=== PATIENT | male | born 1990 | race African-American/Black ===

== ENCOUNTER 2019-05-01 23:26 | Inpatient (IN) | payer OTHER ==
[2019-05-02] MEDS ORDERED: DEXAMETHASONE 10 MG/ML VIAL PO STA (00:08)
[2019-05-02] MEDS ORDERED: LIDOCAINE VISCOUS 2% 15 ML UDC MM STA (00:09)
[2019-05-02] MEDS ORDERED: CHERRY SYRUP 10 ML UDC PO ONE (00:09)
[2019-05-02 00:25] LABS: RAPID STREP SCREEN Negative (Negative)
--- NOTE | 2019-05-02 00:42 | XRAY Report ---
Reason: sore throat Procedure Date: 05/02/2019 Accession Number: [id number] / [id number] Procedure: XR - Neck Soft Tissue CPT Code: Final Report FULL RESULT: EXAM: SOFT TISSUE NECK RADIOGRAPHY EXAM DATE: 05/02/2019 12:36 AM. CLINICAL HISTORY: Sore throat. COMPARISONS: None. TECHNIQUE: 2 views. FINDINGS: Soft Tissues: The prevertebral soft tissues are edematous. The adenoid and palatine tonsils are enlarged. The epiglottis and aryepiglottic folds are unremarkable. No radiopaque foreign body. Regional Skeleton: Unremarkable for age. Other: The visualized lung apices are clear. IMPRESSION: Prevertebral soft tissue swelling with adenoid and palatine tonsillar enlargement. RADIA
[2019-05-02] MEDS ORDERED: IPRATROPIUM/ALBUTEROL 3 ML NEB INH STA (00:43)
[2019-05-02] MEDS ORDERED: KETOROLAC 30 MG/ML VIAL IVP STA (01:18)
[2019-05-02 01:30] LABS: BASOPHILS % (AUTO) 0.3 %; EOSINOPHILS # (AUTO) 0.1 10^3/uL (0.0-0.7); HGB - HEMOGLOBIN 14.9 g/dL (14.0-18.0); LYMPHOCYTES % (AUTO) 8.5 %; MEAN CORPUSCULAR HEMOGLOBIN 26.7 pg (27.0-31.0); MEAN CORPUSCULAR HGB CONC 32.3 g/dL (32.0-36.0); MEAN CORPUSCULAR VOLUME 82.6 fL (80.0-94.0); MEAN PLATELET VOLUME 9.7 fL (7.4-11.4); MONOCYTES # (AUTO) 1.1 10^3/uL (0.0-1.0); MONOCYTES % (AUTO) 8.7 %; NEUTROPHILS # (AUTO) 9.9 10^3/uL (1.5-6.6); NEUTROPHILS % (AUTO) 80.8 %; PLT - PLATELET COUNT 248 10^3/uL (130-450); RED BLOOD COUNT 5.58 10^6/uL (4.70-6.10); RED CELL DISTRIBUTION WIDTH 15.9 % (12.0-15.0); WHITE BLOOD COUNT 12.2 x10^3/uL (4.8-10.8)
[2019-05-02] MEDS ORDERED: IOVERSOL 320 100 ML VIAL IVP ONE ×2 (01:40→02:19)
[2019-05-02 01:41] LABS: ALBUMIN 4.1 g/dL (3.2-5.5); ALBUMIN/GLOBULIN RATIO 1.2 (1.0-2.2); BILIRUBIN,TOTAL 0.8 mg/dL (0.2-1.0); CALCIUM 9.1 mg/dL (8.5-10.3); CREATININE 1.2 mg/dL (0.6-1.2); TOTAL PROTEIN 7.4 g/dL (6.7-8.2)
--- NOTE | 2019-05-02 02:36 | CT Report ---
Reason: SORE THROAT, XRAY SHOW PREVERTEBRAL SWELLING. ?RPA Procedure Date: 05/02/2019 Accession Number: [id number] / [id number] Procedure: CT - SOFT TISSUE NECK W CPT Code: Final Report FULL RESULT: EXAM: CT SOFT TISSUE NECK WITH CONTRAST. EXAM DATE: 05/02/2019 02:17 AM. HISTORY: SORE THROAT, XRAY SHOW PREVERTEBRAL SWELLING. ? Retropharyngeal abscess. COMPARISONS: NECK SOFT TISSUE 05/02/2019 12:29 AM. TECHNIQUE: Routine soft tissue neck CT protocol with contrast. Reconstructions: Coronal and sagittal. IV contrast: OPTIRAY 320. In accordance with CT protocol optimization, one or more of the following dose reduction techniques were utilized for this exam: automated exposure control, adjustment of mA and/or KV based on patient size, or use of iterative reconstructive technique. FINDINGS: Visualized Intracranial Contents: Unremarkable. Orbits: Symmetric and unremarkable. Sinuses: Visualized paranasal sinuses and mastoid air cells are clear. Oral cavity: The visualized oral cavity is unremarkable. The floor of the mouth is symmetric. Pharynx: Boggy, edematous appearing right palatine tonsil without a drainable collection confidently identified. Edema extends upward to about the level of the soft palate, downward into the right hypopharynx, obscuring the right piriform sinus. Prominent adenoids. Mildly prominent lingual tonsils. Edema extends into the retropharyngeal space, this represents the finding seen on radiographs. The base of the tongue is symmetric and unremarkable. The airway is patent. Larynx: Larynx and supraglottic airway are patent without mass lesion. Vocal cords are symmetric. The visualized trachea is unremarkable. Parotid and Submandibular Glands: Symmetric and unremarkable. Lymph Nodes: Prominent right-sided level 2 lymph nodes, likely reactive nodes. Soft tissues: Soft tissues are unremarkable. No mass lesion or abnormal enhancement. Vascular Structures: Unremarkable. Thyroid Gland: Normal. Lung: The visualized lung apices are clear. Bones: No evidence of acute fracture or malalignment. There are mild degenerative changes. Other: None. IMPRESSION: 1. Boggy, edematous appearing right palatine tonsil without a drainable collection confidently identified. Findings consistent with active inflammation. Edema extends upward to about the level of the soft palate, downward into the right hypopharynx, obscuring the right piriform sinus. 2. Edema extends into the retropharyngeal space, this represents the finding seen on radiographs. 3. Prominent right-sided level 2 lymph nodes, likely reactive nodes. RADIA
[2019-05-02] MEDS ORDERED: ONDANSETRON 4 MG/2 ML VIAL IVP PRN (03:30)
[2019-05-02] MEDS ORDERED: SODIUM CHLORIDE FLUSH 0.9% 10 ML SYRINGE IVP PRN (03:30)
[2019-05-02] MEDS ORDERED: ONDANSETRON ODT 4 MG TABLET TL PRN (03:30)
[2019-05-02] MEDS ORDERED: oxyCODONE 5 MG TABLET PO PRN (03:30)
--- NOTE | 2019-05-02 03:32 | ED Physician Documentation ---
PD HPI DYSPNEA - Stated complaint Stated Complaint: SOA/HARD TO SWALLOW - Chief complaint Chief Complaint: Heent - History obtained from History obtained from: Patient - History of Present Illness Timing - onset: Yesterday, Other Timing - onset during: Rest Timing - details: Gradual onset, Still present Pain level max: 8 Pain level now: 8 Associated symptoms: Cough. No: Fever Similar symptoms before: Has not had sx before - Additional information Additional information: 28-year-old male, former smoker who quit smoking about 2 weeks ago, who presents to emergency department because of acute onset of right-sided sore throat that started tonight. He first started experiencing a sore throat a day ago. Tonight while he was sleeping, he reported of a coughing episode with wheezes and post tussive vomiting. He reported of odontophagia. Patient had no drooling. Patient denies any fever or chills. He denies recent oral trauma. He denies any neck pain or similar symptoms like this in the past. Review of Systems Constitutional: denies: Fever Nose: denies: Rhinorrhea / runny nose Throat: reports: Sore throat, Swollen tonsils Cardiac: denies: Chest pain / pressure, Palpitations Respiratory: reports: Dyspnea, Cough, Wheezing GI: denies: Abdominal Pain, Abdominal Swelling, Nausea, Vomiting Skin: denies: Rash Musculoskeletal: denies: Neck pain, Back pain, Extremity pain PD PAST MEDICAL HISTORY - Past Medical History Past Medical History: No Cardiovascular: None Respiratory: None Neuro: None Endocrine/Autoimmune: None GI: None HEENT: None Psych: None Musculoskeletal: None Derm: None - Past Surgical History Past Surgical History: No - Present Medications Home Medications: Ambulatory Orders Medication Instructions Recorded Confirmed No Known Home Medications 05/01/19 05/01/19 - Allergies Allergies/Adverse Reactions: Allergies Allergy/AdvReac Type Severity Reaction Status Date / Time No Known Drug Allergies Allergy Verified 05/01/19 23:32 - Social History Does the pt smoke?: No Smoking Status: Former smoker Does the pt drink ETOH?: Yes ETOH Use: Wine, Beer Does the pt have substance abuse?: No - Immunizations Immunizations are current?: Yes - POLST Patient has POLST: No PD ED PE NORMAL - Vitals Vital signs reviewed: Yes - General General: Alert and oriented X 3 - HEENT HEENT: Atraumatic, Other (mild right peritonsillar swelling. uvula is midline. 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, No motor deficit, No sensory deficit, Normal speech Eye Opening: Spontaneous Motor: Obeys Commands Verbal: Oriented GCS Score: 15 Results - Vitals Vitals: Vital Signs - 24 hr 05/01/19 05/02/19 05/02/19 23:30 00:43 00:50 Temperature 37.3 C Heart Rate 87 76 68 Respiratory 18 19 16 Rate Blood Pressure 148/77 H 137/76 H O2 Saturation 95 100 05/02/19 05/02/19 05/02/19 01:03 02:15 03:05 Temperature Heart Rate 80 64 65 Respiratory 18 16 15 Rate Blood Pressure 159/74 H 138/68 H 122/69 O2 Saturation 99 97 99 Oxygen O2 Source Room air - Labs Labs: Laboratory Tests 05/02/19 05/02/19 05/02/19 00:10 00:10 01:25 WBC 12.2 H RBC 5.58 Hgb 14.9 Hct 46.1 MCV 82.6 MCH 26.7 L MCHC 32.3 RDW 15.9 H Plt Count 248 MPV 9.7 Neut # (Auto) 9.9 H Lymph # (Auto) 1.0 L [place] # (Auto) 1.1 H Eos # (Auto) 0.1 Baso # (Auto) 0.0 Absolute Nucleated RBC 0.00 Nucleated RBC % 0.0 Sodium Potassium Chloride Carbon Dioxide Anion Gap BUN Creatinine Estimated GFR (MDRD) Glucose Calcium Total Bilirubin AST ALT Alkaline Phosphatase Total Protein Albumin Globulin Albumin/Globulin Ratio Influenza A (Rapid) Negative Influenza B (Rapid) Negative Group A Strep Rapid Negative 05/02/19 01:25 WBC RBC Hgb Hct MCV MCH MCHC RDW Plt Count MPV Neut # (Auto) Lymph # (Auto) [place] # (Auto) Eos # (Auto) Baso # (Auto) Absolute Nucleated RBC Nucleated RBC % Sodium 139 Potassium 3.8 Chloride 104 Carbon Dioxide 29 Anion Gap 6.0 BUN 17 Creatinine 1.2 Estimated GFR (MDRD) 86 L Glucose 119 H Calcium 9.1 Total Bilirubin 0.8 AST 29 ALT 75 H Alkaline Phosphatase 48 Total Protein 7.4 Albumin 4.1 Globulin 3.3 Albumin/Globulin Ratio 1.2 Influenza A (Rapid) Influenza B (Rapid) Group A Strep Rapid PD MEDICAL DECISION MAKING - ED course Complexity details: re-evaluated patient, d/w patient ED course: 28-year-old male, who is otherwise healthy, former smoker, who presented to the emergency department for evaluation because of sore throat that started tonight. Patient also woke up with a coughing episode with shortness of breath. Patient had mild Expiratory wheezes and was given a DuoNeb treatment with resolution of his symptoms. Oral for exam did not demonstrate any drooling or trismus. Patient did not have stridor. There was mild swelling to the right tonsillar region. Patient has full range of motion of his neck. Soft tissue x-rays show edema to the prevertebral space. Therefore, IV was started, labs were obtained and CT scan of the soft tissue neck was obtained. White blood cell count was mildly elevated. CT scan of the soft tissue neck with IV contrast showed edema to the right palatine tonsil without abscess identified. There was edema noted in the hypopharynx as well as edema to the retropharyngeal space. There was no CT evidence of retropharyngeal abscess at this time. I discussed the case with Dr. Nate Rosas, ENT specialist. He recommended IV antibiotic, clindamycin, for 48 hours. He also recommended IV steroids as well. If symptoms improve, patient can be follow-up with him as an outpatient with oral antibiotics. Patient's oropharynx remain patent on recheck. He had no stridor, trismus or drooling to suggest any impending airway obstruction. Patient was given oral Decadron earlier when he first arrived. He was given viscous lidocaine with persistent pain. He remained well appearing without distress. Case was discussed with Dr. Ch, Hospitalist. She has accepted the patient for admission. Departure - Departure Disposition: 66 [facility] DC/Xfer Clinical Impression: Cellulitis of tonsil, Oropharynx infection Condition: Stable
--- NOTE | 2019-05-02 03:49 | HISTORY & PHYSICAL EXAMINATION ---
Chief Complaint - Chief Complaint Chief Complaint: sore throat and wheezing, abrupt History of Present Illness - Admitted From Admitted From:: Home/ER - History Obtained From Records Reviewed: [facility] History obtained from: patient and Dr. Zazueta Exam Limitations: none - History of Present Illness HPI Comment/Other: 28-year-old black male who has no major medical illnesses. Regards himself is a healthy individual and this will be the first time he is encountered the medical system. He ill with a slight viral illness but nothing that was "bad". Tonight, however, he was woken from his sleep with a severe sore throat on the right side. It was causing him to have wheezing. He came to the emergency room and was evaluated by Dr. Zazueta. Temperature is 37.3, pulse is 87, blood pressure 148/77. Respirations 18 and is 95% on room air. On examination wheezing was treated with albuterol with good result. He had pain in the soft tissues of his right neck and as such plain film and CT of the neck were done. He has r etropharyngeal edema extending beyond the peritonsillar fold down into his neck. White cell count is 12.2. He is not drooling. Dr. Zazueta consulted ENT at [facility]. I will and reviewed the CT report. There is risk of retropharyngeal abscess developing. As such ENT recommends 8 doses of IV clindamycin. If the patient does not progress he can go home with oral antibiotics. 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 Mom is 44 years old and completely healthy without high blood pressure, cancer, diabetes, heart attack. No siblings. First child is on his way with his girlfriend and will be born soon Living arrangement: At home Living Situation: Alone Social History Notes: Mr. murcia is active duty [employer]. 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 He is originally from [place]. 7 years in the [employer]. His first duty station was [employer] and now here. He finds it a little quite a little boring. He smokes half a pack per day and stop smoking 2 weeks ago. Has been smoking since age 18. He drinks maybe 2 alcoholic drinks a week. Has no history of alcohol abuse, recreational substance abuse. He is not . His girlfriend is due with their first child in the next few weeks. - Substance History Use: Uses substance without health or social issues: Tobacco Abuse: Recurrent use of substance despite neg consequences: NONE Dependence: Experiences withdrawal or developed tolerances: NONE - POLST Patient has POLST: No POLST Status: Full Code Meds/Allgy - Home Medications Home Medications: Ambulatory Orders Medication Instructions Recorded Confirmed No Known Home Medications 05/01/19 05/01/19 - Allergies Allergies/Adverse Reactions: Allergies Allergy/AdvReac Type Severity Reaction Status Date / Time No Known Drug Allergies Allergy Verified 05/01/19 23:32 Review of Systems - All Other Systems All Other Systems: reports: Other (12 point review of systems done. All negative other than occasional right knee pain from hyperextended knee and the current positive ENT review of systems.) Prior Level of Functionality: Completely independent young male who is still active duty [employer], and has no mobility issues, cardiac, pulmonary, or central nervous system issues. Exam - Vital Signs Reviewed Vital Signs: Yes Vital Signs: Vital Signs x48h Temp Pulse Resp BP Pulse Ox 05/02/19 03:05 65 15 122/69 99 05/02/19 02:15 64 16 138/68 H 97 05/02/19 01:03 80 18 159/74 H 99 05/02/19 00:50 68 16 05/02/19 00:43 76 19 137/76 H 100 05/01/19 23:30 37.3 C 87 18 148/77 H 95 - Physical Exam General Appearance: positive: Alert, Mild distress (Mainly from right neck pain. He says his wheezing has resolved with the albuterol treatment.) Eyes Bilateral: positive: PERRL, EOMI ENT: positive: Other (Right tonsillar fold and posterior tonsillar area edematous extending to behind the tongue where I cannot see.) Neck: positive: Lymphadenopathy (R), Lymphadenopathy (L), Swelling/bruising (Mild asymmetry of the musculature along the right anterior cervical neck extending up below the jawline in that it is self than the left. Uncomfortable with palpation.). negative: Carotid bruit Respiratory: positive: Chest non-tender. negative: Wheezes, Rales, Rhonchi Cardiovascular: positive: Regular rate & rhythm. negative: Systolic murmur, Gallop/S4, Friction rub Peripheral Pulses: positive: 1+ Abdomen: positive: Non-tender, No organomegaly, Nml bowel sounds, No distention Skin: positive: Warm, Dry. negative: Diaphoresis Extremities: positive: Non-tender, Full ROM, No pedal edema Neurologic/Psychiatric: positive: Oriented x3, CN's nml (2-12), Motor nml, Sensation nml Conclusion/Plan - Problem List (1) Oropharynx infection Conclusion/Plan: This very pleasant male has new onset of a high risk infection where outpatient antibiotics is not appropriate. He has suspected streptococcal soft tissue infection. CT scan does not show a retropharyngeal abscess but he does have edema and inflammation in the retropharyngeal space that needs to be monitored closely. Plan: Inpatient admission for 8 doses of IV clindamycin Daily CBC Monitor airway and if there are signs of stridor or wheezing, repeat CT of neck (2) Pain and tenderness Conclusion/Plan: I have explained to the patient that he needs to let the nurses know if he has any change in his airway status. Pain will be controlled with Tylenol, oxycodone, or morphine depending on severity of illness. - Lab Results Lab results reviewed: Yes Shaheed Bones: 05/02/19 01:25 05/02/19 01:25 - Diagnostic Imaging Results Diagnostic Imaging Results: positive: Final report reviewed Diagnostic Imaging Results Comments: Soft tissue neck x-ray shows prevertebral soft tissue swelling with adenoid and palatine tonsillar enlargement. Soft tissue neck CT shows boggy, edematous appearing right palatine tonsil without drainable collection. Findings consistent with active inflammation. Edema extends upward to about the level of the soft palate, downward into the right hypopharynx and obscuring the right piriform sinus. Edema extends into the retropharyngeal space representing findings seen on plain film. Core Measures - Anticipated LOS I expect patient to be DC'd or transferred within 96 hours.: Yes - DVT/VTE - Prophylaxis VTE/DVT Device ordered at admit?: Yes
[2019-05-02] MEDS ORDERED: CLINDAMYCIN 900 MG/50 ML 50 ML IV SCH (04:00)
[2019-05-02] MEDS ORDERED: SODIUM CHLORIDE 0.9% 1,000 ML IV SCH (04:00)
[2019-05-02] MEDS: CLINDAMYCIN 900 MG/50 ML 50 ML IV SCH ×3 (09:54→21:36)
--- NOTE | 2019-05-02 10:24 | PROVIDER PROGRESS NOTE ---
Subjective - Prog Note Date Prog Note Date: 05/02/19 Prog Note Time: 10:17 - Subjective Pt reports feeling: Improved Subjective: Jennifer complains of a 5 out of 10 pain deep in his right throat that becomes worse with swallowing. He notes that bread seemed to be a problem when swallowing, otherwise did ok with breakfast. He agrees to the full treatment of IV antibiotics until ThursdayMay 03 ~ 1900PM, then transition to oral Clindamycin. Current Medications - Current Medications Current Medications: Active Medications: Tylenol 650mg PO Q4H, PRN Clindamycin Phosphate 50 mls @ 50 mls/hr IV ONCE ABIDA Clindamycin Phosphate (Cleocin 900 Mg/50 Ml) 50 mls @ 50 mls/hr IV Q6H ABIDA Morphine Sulfate (Morphine (Carpuject) 2 mg IVP Q2HR PRN Ondansetron HCl (Zofran Inj) 4 mg IVP Q6HR PRN Ondansetron HCl (Zofran Odt) 4 mg TL Q6HR PRN Oxycodone HCl (Roxicodone) 5 mg PO Q4HR PRN No Known Home Medications 05/01/19 Objective - Vital Signs/Intake & Output Reviewed Vital Signs: Yes Vital Signs: Vital Signs x48h Temp Pulse Pulse Resp BP BP BP 05/02/19 08:00 36.8 C 90 16 141/71 H 05/02/19 06:17 36.9 C 66 20 05/02/19 04:16 36.9 C 66 20 145/60 H 05/02/19 04:10 37.2 C 66 16 129/67 05/02/19 03:05 65 15 122/69 Pulse Ox 05/02/19 08:00 98 05/02/19 06:17 97 05/02/19 04:16 97 05/02/19 04:10 99 05/02/19 03:05 99 Intake & Output: Intake & Output 04/29/19 04/30/19 05/01/19 05/02/19 23:59 23:59 23:59 23:59 Intake Total 688.333 Balance 688.333 - Objective General Appearance: positive: No acute distress, Alert Eyes Bilateral: positive: Normal inspection, PERRL, No lid inflammation ENT: positive: No signs of dehydration, Pharyngeal erythema Neck: positive: Thyroid nml, No JVD, Trachea midline, Lymphadenopathy (R) (greater than left, non-tender) Respiratory: positive: Chest non-tender, No respiratory distress, Breath sounds nml Cardiovascular: positive: Regular rate & rhythm, No murmur, No gallop Peripheral Pulses: 2+ Radial (R), 2+ Radial (L) Abdomen: positive: Non-tender, No organomegaly, Nml bowel sounds Back: positive: Nml inspection Skin: positive: Color nml, No rash, Warm, Dry Extremities: positive: Non-tender, Full ROM, Nml appearance, No pedal edema Neurologic/Psychiatric: positive: Oriented x3, CN's nml (2-12), Motor nml, Sensation nml, Mood/affect nml Reflexes: Bicep (R): 4+, Bicep (L): 4+ - Lab Results Fish Bones: 05/02/19 01:25 05/02/19 01:25 Other Labs: Lab Results x24hrs 05/02/19 05/02/19 05/02/19 Range/Units 04:00 01:25 01:25 WBC 12.2 H (4.8-10.8) x10^3/uL RBC 5.58 (4.70-6.10) 10^6/uL Hgb 14.9 (14.0-18.0) g/dL Hct 46.1 (42.0-52.0) % MCV 82.6 (80.0-94.0) fL MCH 26.7 L (27.0-31.0) pg MCHC 32.3 (32.0-36.0) g/dL RDW 15.9 H (12.0-15.0) % Plt Count 248 (130-450) 10^3/uL MPV 9.7 (7.4-11.4) fL Neut # (Auto) 9.9 H (1.5-6.6) 10^3/uL Lymph # (Auto) 1.0 L (1.5-3.5) 10^3/uL [place] # (Auto) 1.1 H (0.0-1.0) 10^3/uL Eos # (Auto) 0.1 (0.0-0.7) 10^3/uL Baso # (Auto) 0.0 (0.0-0.1) 10^3/uL Absolute Nucleated RBC 0.00 x10^3/uL Nucleated RBC % 0.0 /100WBC Sodium 139 (135-145) mmol/L Potassium 3.8 (3.5-5.0) mmol/L Chloride 104 (101-111) mmol/L Carbon Dioxide 29 (21-32) mmol/L Anion Gap 6.0 (6-13) BUN 17 (6-20) mg/dL Creatinine 1.2 (0.6-1.2) mg/dL Estimated GFR (MDRD) 86 L (>89) Glucose 119 H (70-100) mg/dL Calcium 9.1 (8.5-10.3) mg/dL Total Bilirubin 0.8 (0.2-1.0) mg/dL AST 29 (10-42) IU/L ALT 75 H (10-60) IU/L Alkaline Phosphatase 48 (42-121) IU/L Total Protein 7.4 (6.7-8.2) g/dL Albumin 4.1 (3.2-5.5) g/dL Globulin 3.3 (2.1-4.2) g/dL Albumin/Globulin Ratio 1.2 (1.0-2.2) Nasal Screen MRSA (PCR) NEGATIVE (NEGATIVE) Influenza A (Rapid) (Negative) Influenza B (Rapid) (Negative) Group A Strep Rapid (Negative) 05/02/19 05/02/19 Range/Units 00:10 00:10 WBC (4.8-10.8) x10^3/uL RBC (4.70-6.10) 10^6/uL Hgb (14.0-18.0) g/dL Hct (42.0-52.0) % MCV (80.0-94.0) fL MCH (27.0-31.0) pg MCHC (32.0-36.0) g/dL RDW (12.0-15.0) % Plt Count (130-450) 10^3/uL MPV (7.4-11.4) fL Neut # (Auto) (1.5-6.6) 10^3/uL Lymph # (Auto) (1.5-3.5) 10^3/uL [place] # (Auto) (0.0-1.0) 10^3/uL Eos # (Auto) (0.0-0.7) 10^3/uL Baso # (Auto) (0.0-0.1) 10^3/uL Absolute Nucleated RBC x10^3/uL Nucleated RBC % /100WBC Sodium (135-145) mmol/L Potassium (3.5-5.0) mmol/L Chloride (101-111) mmol/L Carbon Dioxide (21-32) mmol/L Anion Gap (6-13) BUN (6-20) mg/dL Creatinine (0.6-1.2) mg/dL Estimated GFR (MDRD) (>89) Glucose (70-100) mg/dL Calcium (8.5-10.3) mg/dL Total Bilirubin (0.2-1.0) mg/dL AST (10-42) IU/L ALT (10-60) IU/L Alkaline Phosphatase (42-121) IU/L Total Protein (6.7-8.2) g/dL Albumin (3.2-5.5) g/dL Globulin (2.1-4.2) g/dL Albumin/Globulin Ratio (1.0-2.2) Nasal Screen MRSA (PCR) (NEGATIVE) Influenza A (Rapid) Negative (Negative) Influenza B (Rapid) Negative (Negative) Group A Strep Rapid Negative (Negative) ABX Reporting Has patient been on IV antibiotics over the past 48 hours?: Yes Assessment/Plan - Problem List (1) Oropharynx infection Impression: High risk infection where outpatient antibiotics is not appropriate -Suspected streptococcal soft tissue infection -Stopped smoking ~2 weeks ago -CT scan does not show a right non-drainable retropharyngeal abscess, edema and inflammation in the retropharyngeal space that needs to be monitored closely -Continue inpatient stay for 8 doses of IV clindamycin, expected D/C Thursday ~1899 -Routine daily labs -Monitor airway and if there are signs of stridor or wheezing, repeat CT of neck Pain and tenderness -Patient encouraged to tell nursing right away if he notices any change in his airway or increased cough -Continue pain control with Tylenol, oxycodone, or morphine depending on severity -Patient refuses any lozenges, throat sprays Tobacco dependence, in remission -Patient states that he had smoked for the past 9 years -States that he quit smoking ~2 weeks ago after finding out he will be a father -Notes that his significant other is 6 weeks now -Refuses nicotine replacement -Encourage cessation
[2019-05-02] MEDS ORDERED: IBUPROFEN 100 MG/5 ML UDC PO PRN (10:30)
[2019-05-02] MEDS ORDERED: ACETAMINOPHEN 325 MG TABLET PO PRN (10:30)
[2019-05-02] MEDS: SODIUM CHLORIDE FLUSH 0.9% 10 ML SYRINGE IVP SCH ×2 (10:59→17:54)
--- NOTE | 2019-05-02 11:35 | PHARMACY PROGRESS NOTE ---
- Best Possible Medication History Admit Date and Time: 05/02/19 0330 Processed by: Nursing Medication History completed: Yes As the person ultimately responsible for medication therapy, providers are able to order a medication from an existing home medication list in [facility] via the "Reconcile Routine" prior to Confirmation of that medication by youth support worker. Such practice is discouraged except when the physician, in their clinical judgment, deems that a medical need exists for a medication without regard to previous use.
[2019-05-02] MEDS: MORPHINE 2 MG/ML CARPUJECT IVP PRN ×2 (14:47→17:53)
[2019-05-02] MEDS: DEXAMETHASONE 4 MG/ML VIAL IVP SCH ×2 (14:47→20:07)
[2019-05-03] MEDS: DEXAMETHASONE 4 MG/ML VIAL IVP SCH ×3 (03:26→13:56)
[2019-05-03] MEDS: CLINDAMYCIN 900 MG/50 ML 50 ML IV SCH ×3 (03:26→15:07)
[2019-05-03] MEDS: SODIUM CHLORIDE FLUSH 0.9% 10 ML SYRINGE IVP SCH ×2 (03:26→08:01)
[2019-05-03] MEDS ORDERED: IBUPROFEN 600 MG TABLET PO PRN (09:05)
[2019-05-03] MEDS ORDERED: PANTOPRAZOLE 40 MG TABLET PO SCH (11:00)
--- NOTE | 2019-05-03 14:30 | Discharge Plan ---
Discharge Plan Problem Reviewed?: Yes Disposition: Home, Self Care Condition: Good Prescriptions: Acetaminophen [Tylenol] 650 mg PO Q4HR PRN #30 tablet PRN Reason: Pain Or Fever > 38c (100.4f) Clindamycin HCl [Clindamycin 300MG CAP] 300 mg PO QID #20 capsule oxyCODONE [Roxicodone] 5 mg PO Q4-6H PRN #20 tablet PRN Reason: Pain predniSONE [Prednisone] 20 mg PO DAILY #2 tablet Diet: Soft Activity Restrictions: No Restrictions Shower Restrictions: No Driving Restrictions: No Instruction Topics: Clindamycin capsules, Prednisone tablets Health Concerns: Pharyngitis Throat pain Cough Tobacco dependence, in remission Plan of Treatment: Continue the antibiotics for the next 5 days (4 times per day with food) Continue the Prednisone for only 2 days starting tomorrow AM See Dr. Jamie Joseph by the end of this week in [place] Return to the ED if you have similar symptoms, trouble with breathing or excessive cough Care Goals: Prevent recurrence of this infection Prevent ED visits or hospital stays Assessment: You were hospitalized after finding that you had pharyngitis, which was concerning as it is very close to your airway. Your symptoms were treated using IV steroid, IV antibiotics, Tylenol, ibuprofen, and oxycodone. A strep throat culture rapid test was negative, with final results still pending. Influenza A&B, and MRSA were also negative. You should continue the Clindamycin for the next 5 days & continue the pred nisone for 2 more days. If you have symptoms similar to when you first came in, you need to seek medical attention right away. I reached out to Dr. Jamie Joseph, Maxillofacial and oral specialist. He agrees with the current treatment, and recommends follow up outpatient by Monday May 06, 2019. Please call Dr[address] Jamie Joseph in [place] at [phone] Address is: [address], [place] [address] Please follow up with your primary care provider within one week. Congratulations on your new baby, and keep up the great work with stopping smoking! No Smoking: If you smoke, Please STOP! Call for help.
--- NOTE | 2019-05-03 14:45 | DISCHARGE SUMMARY ---
Discharge Summary Admit Date: 05/02/19 Discharge Date: 05/03/19 Discharging Provider: SCOTT Solorzano Primary Care Provider: Code Status: Attempt Resuscitation Condition at Discharge: Good Discharge Disposition: 01 Home, Self Care - DIAGNOSES Admission Diagnoses: Oropharynx infection Pain and tenderness Discharge Diagnoses with Status of Each Condition: Oropharynx infection-Present on admit, stable, continue treatment at home Pain and tenderness-Improved, stable Acute pharyngitis-Present on admission, will see Dr. Joseph later this week, ongoing Tobacco dependence, in remission-Chronic, plans to stop forever - HPI History of Present Illness: HPI per Dr. Ch: 28-year-old black male who has no major medical illnesses. Regards himself is a healthy individual and this will be the first time he is encountered the medical system. He ill with a slight viral illness but nothing that was "bad". Tonight, however, he was woken from his sleep with a severe sore throat on the right side. It was causing him to have wheezing. He came to the emergency room and was evaluated by Dr. Zazueat. Temperature is 37.3, pulse is 87, blood pressure 148/77. Respirations 18 and is 95% on room air. On examination wheezing was treated with albuterol with good result. He had pain in the soft tissues of his right neck and as such plain film and CT of the neck were done. He has retropharyngeal edema extending beyond the peritonsillar fold down into his neck. White cell count is 12.2. He is not drooling. Dr. Zazueta consulted ENT at [facility]. I will and reviewed the CT report. There is risk of retropharyngeal abscess developing. As such ENT recommends 8 doses of IV clindamycin. If the patient does not progress he can go home with oral antibiotics. - HOSPITAL COURSE Hospital Course: The patient was hospitalized after finding pharyngitis, which was concerning as it is very close to the airway. The patient's symptoms were treated using IV steroid, IV antibiotics, Tylenol, ibuprofen, and oxycodone. A strep throat culture rapid test was negative, with final results still pending. Influenza A&B, and MRSA were also negative. The patient will continue the Clindamycin for the next 5 days & continue the prednisone for 2 more days. He was instructed if he has symptoms similar to when he first came in, he needs to seek medical attention right away. I reached out to Dr. Jamie Joseph, Maxillofacial and oral specialist. He agrees with the current treatment, and recommends follow up outpatient by Monday May 06, 2019. Please follow up with your primary care provider within one week. - ALLERGIES Allergies/Adverse Reactions: Allergies Allergy/AdvReac Type Severity Reaction Status Date / Time No Known Drug Allergies Allergy Verified 05/01/19 23:32 - MEDICATIONS Home Medications: Ambulatory Orders Medication Instructions Recorded Confirmed Acetaminophen [Tylenol] 650 mg PO Q4HR PRN #30 tablet 05/03/19 Clindamycin HCl [Clindamycin 300MG 300 mg PO QID #20 capsule 05/03/19 CAP] oxyCODONE [Roxicodone] 5 mg PO Q4-6H PRN #20 tablet 05/03/19 predniSONE [Prednisone] 20 mg PO DAILY #2 tablet 05/03/19 - PHYSICAL EXAM AT DISCHARGE General Appearance: positive: No acute distress, Alert Eyes Bilateral: positive: Normal inspection, PERRL ENT: positive: ENT inspection nml, No signs of dehydration Neck: positive: Thyroid nml, No JVD, Trachea midline, Lymphadenopathy (R) Respiratory: positive: Chest non-tender, No respiratory distress, Breath sounds nml Cardiovascular: positive: Regular rate & rhythm, No murmur, No gallop Peripheral Pulses: positive: 2+ Abdomen: positive: Non-tender, No organomegaly, Nml bowel sounds Back: positive: Nml inspection Skin: positive: Color nml, No rash, Warm, Dry Extremities: positive: Non-tender, Full ROM, Nml appearance, No pedal edema Neurologic/Psychiatric: positive: Oriented x3, CN's nml (2-12), Motor nml, Sensation nml, Mood/affect nml Reflexes: Bicep (R): 4+, Bicep (L): 4+, Ankle (R): 4+, Ankle (L): 4+ - LABS Result Diagrams: 05/02/19 01:25 05/02/19 01:25 - TIME SPENT Time Spent in Discharge (Minutes): 45
[2019-05-03 16:43] VITALS: BP 151/88
== END 2019-05-03 16:42 | disposition home or self-care (01) | DRG 153 ==
LOC: ED 23:26 → MS3 05-02 03:30 → ICU 05-02 04:19
PROVIDERS: ADMIT Specialist; ATTEND Nurse Practitioner
DX: J02.9 Acute pharyngitis, unspecified (principal); F17.211 Nicotine dependence, cigarettes, in remission
CPT/HCPCS: 36415; 70360; 70491; 80053; 85025; 87070; 87150; 87275; 87276; 87430; 94640; 96374; 99284; 99285; A9270; Q9967; 87797